=== PATIENT | male | born 1970 | race Caucasian/White ===

== ENCOUNTER 2016-10-18 11:00 | Outpatient (CLI) | payer BC ==
[~2016-10-18] VITALS: Ht 188 cm; Wt 90.7 kg
== END 2016-10-18 11:37 ==
LOC: PREOP 11:00
PROVIDERS: ATTEND Surgery
DX: Z01.818 Encounter for other preprocedural examination (principal); Z80.0 Family history of malignant neoplasm of digestive organs

== ENCOUNTER 2016-10-21 10:18 | Day surgery (SDC) | payer BC ==
[~2016-10-21] VITALS: Ht 188 cm; Wt 90.7 kg
[2016-10-21] MEDS ORDERED: NS IV 500 ML 500 ML ONE (10:30)
[2016-10-21] MEDS ORDERED: NS IV 500 ML 500 ML IV SCH (10:30)
--- NOTE | 2016-10-21 10:37 | Conscious Sedation/ASA ---
Conscious Sedation Pre-Proced Time Reviewed: 10:37 ASA Class: 1 Airway Mallampati Classification: ([place] appropriate class) I. II. III, IV Lungs Heart ASA score ASA 1: a normal healthy patient ASA 2: a patient with a mild systemic disease (mid diabetes, controlled hypertension, obesity ASA 3: a patient with a severe systemic disease that limits activity (angina , COPD, prior Myocardial infarction) ASA 4: a patient with an incapacitating disease that is a constant threat to life (CHF, renal failure) ASA 5: a moribund patient not expected to survive 24 hrs. (ruptured aneurysm) ASA 6: a declared brain patient whose organs are being harvested. For emergent operations, add the letter E after the classification Grade 1 Sedation Plan: Discussed options with patient/fam Note The patient is an appropriate candidate to undergo the planned procedure, sedation, and anesthesia. The patient immediately re-assessed prior to indication. PHILIP ALMANZA MD Oct 21, 2016 10:37 am
--- NOTE | 2016-10-21 10:44 | Conscious Sedation/ASA ---
Conscious Sedation Pre-Proced Time Reviewed: 10:37 ASA Class: 1 Airway Mallampati Classification: ([place] appropriate class) I. II. III, IV Lungs Heart ASA score ASA 1: a normal healthy patient ASA 2: a patient with a mild systemic disease (mid diabetes, controlled hypertension, obesity ASA 3: a patient with a severe systemic disease that limits activity (angina , COPD, prior Myocardial infarction) ASA 4: a patient with an incapacitating disease that is a constant threat to life (CHF, renal failure) ASA 5: a moribund patient not expected to survive 24 hrs. (ruptured aneurysm) ASA 6: a declared brain patient whose organs are being harvested. For emergent operations, add the letter E after the classification Grade 1 Sedation Plan: Discussed options with patient/fam Note The patient is an appropriate candidate to undergo the planned procedure, sedation, and anesthesia. The patient immediately re-assessed prior to indication. PHILIP ALMANZA MD Oct 21, 2016 10:44 am
--- NOTE | 2016-10-21 10:46 | History & Physicial ---
History of Present Illness History of Present Illness Reason for visit/HPI to undergo screening colonoscopy. Family history of colon cancer in his father. Previous colonoscopy negative for polyps, 8 years ago. Date of Admission Date Seen by Provider: Oct 21, 2016 Time Seen by Provider: 10:44 I consulted on this patient on 10/21/16 10:44 Attending Physician Philip Almanza MD Admitting Physician No,Local Physician Consult Allergies and Home Medications Allergies Coded Allergies: No Known Drug Allergies (Unverified , 10/18/16) Home Medications No Active Prescriptions or Reported Meds Past [id number] Hx Patient Social History Marrital Status: Employed/Student: employed Smoking Status: Never a Smoker Recent Foreign Travel: No Contact w/other who traveled: No Recent Hopitalizations: No Seasonal Allergies Seasonal Allergies: No Constitutional: no symptoms reported EENTM: no symptoms reported Respiratory: no symptoms reported Gastrointestinal: no symptoms reported Musculoskeletal: no symptoms reported Psychiatric/Neurological: No Symptoms Reported Physical Exam Vital Signs Capillary Refill : General Appearance: No Apparent Distress HEENT: Normal ENT Inspection Neck: Normal Inspection Respiratory: Lungs Clear Cardiovascular: Regular Rate, Rhythm Gastrointestinal: Non Tender, Soft Rectal: Deferred Back: Normal Inspection Extremity: Normal Inspection Neurologic/Psychiatric: Oriented x3 Skin: Warm/Dry Assessment/Plan Assessment and Plan gentleman with a family history of colon cancer. For screening colonoscopy. For additional diagnoses of polyps, iatrogenic perforation, post polypectomy bleeding etc. discussed thoroughly. Seems to be in agreement to proceed. Problems: PHILIP ALMANZA MD Oct 21, 2016 10:46 am
[2016-10-21] MEDS ORDERED: fentaNYL INJECTION 100 MCG/2 ML AMP ONE ×2 (11:00)
[2016-10-21] MEDS ORDERED: MIDAZOLAM 2 MG/2 ML (VERSED) VIAL ONE ×3 (11:01)
[2016-10-21] MEDS: fentaNYL INJECTION 100 MCG/2 ML AMP IVP PRN ×2 (11:05→11:13)
[2016-10-21 11:11] VITALS: BP 130/94
[2016-10-21] MEDS: MIDAZOLAM 2 MG/2 ML (VERSED) VIAL IVP PRN ×3 (11:12→11:20)
[2016-10-21] MEDS ORDERED: NF-ESOM40C PO (11:15)
--- NOTE | 2016-10-21 11:27 | Endo Procedure Record ---
Endo Procedure Report Date of Procedure Oct 21, 2016 Surgeon (s) PHILIP ALMANZA MD Post Procedure/Op Diagnosis normal colonoscopy Procedure Performed colonoscopy to cecum Description of Procedure Anesthesia Type: Conscious Sedation Specimen(s) collected/removed none Description of the Procedure Indication for procedure: this gentleman, who has a family history of colon cancer in his father, came in for screening colonoscopy. He denied any specific symptoms. Informed consent was obtained after reviewing the procedure in detail. Discussion of procedure: he was placed in left lateral to this position and his vital signs were monitored. Conscious sedation was achieved using Versed and fentanyl. Digital rectal examination was unremarkable. The colonoscope was then introduced into the rectum and advanced all the way up to the cecum The quality of bowel preparation was excellent. The scope was then withdrawn slowly and the mucosa examined in a systematic fashion. There was no abnormality. She tolerated the procedure well and was taken back to the nursing area in a stable condition. Impression: Normal screening colonoscopy. Positive family history. Recommend repeating in 5 years. PHILIP ALMANZA MD Oct 21, 2016 11:27 am
--- NOTE | 2016-10-21 11:30 | Discharge Inst-Simple/Standard ---
Discharge Inst-Standard Discharge Medications New, Converted or Re-Newed RX: Other Patient Instructions/Follow Up Plan of Care/Instructions/FU: repeat colonoscopy in 5 Activity as Tolerated: Yes Discharge Diet: No Restrictions PHILIP ALMANZA MD Oct 21, 2016 11:30 am
[2016-10-21 12:05] VITALS: BP 122/84
[2016-10-21 12:30] VITALS: BP 134/87
[2016-10-21 12:41] VITALS: BP 134/87
== END 2016-10-21 12:40 | disposition home or self-care (01) ==
LOC: ENDO 10:18
PROVIDERS: ATTEND Surgery
DX: Z12.11 Encounter for screening for malignant neoplasm of colon (principal); Z80.0 Family history of malignant neoplasm of digestive organs